=== PATIENT | male | born 1970 | race Caucasian/White ===

== ENCOUNTER 2025-05-27 09:28 | Emergency (ER) | payer BC, SELFPAY ==
[2025-05-27] VITALS (18 sets, daily range): BP systolic 122–146; BP diastolic 88–101; PULSE 77–101; TEMP 36.8; O2SAT 94–100; BMI 35.9
--- NOTE | 2025-05-27 09:58 | CT_ITS ---
The [address] [address] Patient Name: AMRITA NYE MRN: [id number] date: 1970 Sex: M Assigned Patient Location: ER Current Patient Location: Accession/Order Number: [id number] Exam Date: 05/27/2025 10:42 Report Date: 05/27/2025 11:20 At the request of: ARMAAN LINCOLN DO Procedure: CT angio neck CTA OF THE HEAD AND NECK WITH CONTRAST CLINICAL DATA: Transient blurred vision and disorientation. COMPARISON: None Spiral images were obtained through the head and neck following 100 MLO of Omnipaque 350. Sagittal and coronal MIP as well as 3-D volume rendered reconstructions of carotid arteries and [place] were reviewed. Stenosis is evaluated using NASCET criteria. This CT exam was performed using one or more following dose reduction techniques: Automated exposure control, adjustment of the mA and/or kV according to patient size, or use of iterative reconstruction technique. The aortic arch and proximal great vessels are unremarkable. There are patent vertebral arteries, without dissection or stenosis. The right is slightly larger in caliber than the left. Evaluation of the carotid arteries is slightly limited by respiratory motion however no significant plaque or luminal narrowing is identified. The cervical spine is unremarkable. There are a few small shotty cervical lymph nodes. The upper imaged lungs show an azygos lobe. There are no other contributory findings. The distal vertebral, basilar and posterior cerebral arteries show no significant findings. There is minimal carotid siphon plaque on the right, without associated luminal narrowing. The anterior and middle cerebral arteries are patent. No focal stenosis or suspected thrombosis is identified. No aneurysms are seen. CT/CT angio neck IMPRESSION: NO SIGNIFICANT VASCULAR FINDINGS. Impression dictated by: Radha Spaulding M.D. 05/27/2025 11:20 AM Dictation Location: [place] [address] Electronically authenticated by: [id number] Y Date: 05/27/2025 11:20
--- NOTE | 2025-05-27 09:58 | ECG_ITS ---
The [facility] Test Date: 2025-05-27 Pat Name: AMRITA NYE Department: Room: - Gender: Male Certified Physician Assistant: : 1970 Requested By: [id number] Order Number: [id number] Reading MD: GLORIA CHAVEZ Measurements Intervals [place] Rate: 91 P: 40 GA: 152 QRS: 60 QRSD: 92 T: 35 QT: 390 QTc: 439 Interpretive Statements 1100 Sinus rhythm 9110 normal ECG No previous ECG available for comparison Electronically Signed On 05-27-2025 11:19:08 EDT by GLORIA CHAVEZ
--- NOTE | 2025-05-27 09:58 | CT_ITS ---
The [address] [address] Patient Name: AMRITA NYE MRN: [id number] date: 1970 Sex: M Assigned Patient Location: ER Current Patient Location: Accession/Order Number: [id number] Exam Date: 05/27/2025 10:42 Report Date: 05/27/2025 11:20 At the request of: ARMAAN LINCOLN DO Procedure: CT angio neck CTA OF THE HEAD AND NECK WITH CONTRAST CLINICAL DATA: Transient blurred vision and disorientation. COMPARISON: None Spiral images were obtained through the head and neck following 100 MLO of Omnipaque 350. Sagittal and coronal MIP as well as 3-D volume rendered reconstructions of carotid arteries and [place] were reviewed. Stenosis is evaluated using NASCET criteria. This CT exam was performed using one or more following dose reduction techniques: Automated exposure control, adjustment of the mA and/or kV according to patient size, or use of iterative reconstruction technique. The aortic arch and proximal great vessels are unremarkable. There are patent vertebral arteries, without dissection or stenosis. The right is slightly larger in caliber than the left. Evaluation of the carotid arteries is slightly limited by respiratory motion however no significant plaque or luminal narrowing is identified. The cervical spine is unremarkable. There are a few small shotty cervical lymph nodes. The upper imaged lungs show an azygos lobe. There are no other contributory findings. The distal vertebral, basilar and posterior cerebral arteries show no significant findings. There is minimal carotid siphon plaque on the right, without associated luminal narrowing. The anterior and middle cerebral arteries are patent. No focal stenosis or suspected thrombosis is identified. No aneurysms are seen. CT/CT angio head IMPRESSION: NO SIGNIFICANT VASCULAR FINDINGS. Impression dictated by: Radha Spaulding M.D. 05/27/2025 11:20 AM Dictation Location: [place] [address] Electronically authenticated by: [id number] Y Date: 05/27/2025 11:20
--- NOTE | 2025-05-27 09:58 | CT_ITS ---
The [address] [address] Patient Name: AMRITA NYE MRN: [id number] date: 1970 Sex: M Assigned Patient Location: ER Current Patient Location: Accession/Order Number: [id number] Exam Date: 05/27/2025 10:42 Report Date: 05/27/2025 11:05 At the request of: ARMAAN LINCOLN DO Procedure: CT head/brain wo con CT BRAIN WITHOUT CONTRAST: CLINICAL HISTORY: Disorientation while driving. Transient blurred vision. COMPARISON: None TECHNIQUE: Contiguous axial unenhanced images were obtained through the brain. This CT exam was performed using one or more following dose reduction techniques: Automated exposure control, adjustment of the mA and/or kV according to patient size, or use of iterative reconstruction technique. FINDINGS: There is minor atrophy. The ventricles are normal in size and position. There are no significant areas of abnormal attenuation. There is no hemorrhage, mass effect or extra-axial collections. The imaged paranasal sinuses and mastoid air cells are clear. There is minor carotid siphon plaque. CT/CT head/brain wo con IMPRESSION: NO DEFINITE ACUTE INTRACRANIAL FINDINGS. FOLLOW-UP IS RECOMMENDED, SYMPTOMS WARRANT. Impression dictated by: Radha Spaulding M.D. 05/27/2025 11:05 AM Dictation Location: [place] [address] Electronically authenticated by: [id number] Y Date: 05/27/2025 11:05
--- NOTE | 2025-05-27 10:15 | ED_ITS ---
HPI HPI - General Adult General Chief complaint: Altered Mental Status Stated complaint: BLURRED VISION HEADACHE DIZZINESS Time Seen by Provider: 05/27/25 09:43 Source: patient Mode of arrival: walk-in Limitations: no limitations History of Present Illness HPI narrative: Patient is a 54-year-old male presenting to the emergency department with his for concerns of disorientation . 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 He states that he cannot keep his eyes open and feels extremely tired. He also state he had some blurry vision in the left eye, which is now completely resolved. He states he thinks he may have taken too much Seroquel, and may have confused his medication with citalopram. Other than feeling exhausted and unable to keep his eyes open, he has no other complaints. He denies chest pain or shortness of breath. No headache or neck pain. No fevers or chills. No abdominal pain, nausea, or vomiting. No weakness in the extremities. No paresthesias in the extremities. No loss of taste, smell, or hearing. Denies history of stroke or prior LA. Medical history only significant for hypertension and unspecified psychiatric illness. He denies recreational drug ingestions or alcohol use. Related Data Allergies Allergy/AdvReac Type Severity Reaction Status Date / Time No Known Drug Allergies Allergy Verified 05/27/25 09:35 Review of Systems ROS Status of ROS 10 or more systems reviewed and unremark able except as noted in history and below PFSH PFSH Social History Little interest or pleasure in doing things: not at all Feeling down, depressed, or hopeless: not at all Exam Narrative Exam Narrative: CONSTITUTIONAL: Patient is awake and alert, answering questions and following commands appropriately, his eyes start to close but will spontaneously wake himself up to continue the conversation SKIN: Was warm and dry. EYES: PERRLA, no scleral icterus or conjunctival pallor. Visual rodriguez intact. EARS, NOSE, THROAT: Neck was supple. There was no jugular venous distention. RESPIRATORY: Clear to auscultation bilaterally, no wheezes, crackles, or stridor, no use of accessory muscles CARDIOVASCULAR: Normal rate and regular rhythm. There is no S3, S4, murmur, rub. Radial pulses are 2+ and symmetrical. GASTROINTESTINAL: Abdomen was soft, non-tender, and non-distended. There is no guarding or rebound tenderness MUSCULOSKELETAL: There was no lower extremity edema, erythema, or tenderness. No clonus or rigidity. NEUROLOGIC: Patient is alert and oriented to person place and time with normal speech. Memory is normal and thought process is intact. Sensation: sensation to light touch is intact bilaterally in upper and lower extremities. Motor: Good muscle tone. Strength is 5/5 bilaterally in the upper and lower extremities. Cerebellar: Finger to nose intact. Cranial Nerves: Pupils are round, reactive to light and accommodation. Extraocular movements are intact without ptosis. No nystagmus. Facial sensation intact bilaterally to light touch in the V1, V2, V3 distribution. Facial muscle strength is normal and equal bilaterally. Hearing is normal bilaterally. Palate and uvula elevate symmetrically. Shoulder shrug strong and equal bilaterally. Tongue protrudes midline and moves symmetrically. Constitutional Vital Signs, click to edit/add: Last Vital Signs Temp 98.2 F 05/27/25 09:35 Pulse 91 H 05/27/25 12:00 Resp 27 H 05/27/25 12:00 BP 122/101 H 05/27/25 11:31 Pulse Ox 100 05/27/25 11:31 O2 Del Method Room Air 05/27/25 09:35 Course Vital Signs Vital signs: Vital Signs Temperature 98.2 F 05/27/25 09:35 Pulse Rate 101 H 05/27/25 09:35 Respiratory Rate 16 05/27/25 09:35 Blood Pressure 142/99 H 05/27/25 09:35 Pulse Oximetry 98 05/27/25 09:35 Oxygen Delivery Method Room Air 05/27/25 09:35 Temperature 98.2 F 05/27/25 09:35 Pulse Rate 91 H 05/27/25 12:00 Respiratory Rate 27 H 05/27/25 12:00 Blood Pressure 122/101 H 05/27/25 11:31 Pulse Oximetry 100 05/27/25 11:31 Oxygen Delivery Method Room Air 05/27/25 09:35 Medical Decision Making MDM Narrative Medical decision making narrative: Patient is a 54-year-old male presenting to the emergency department with his for concerns of disorientation, blurred vision that is has since resolved, and excessive tiredness. Patient thinks he may have accidentally taken a full dose of Seroquel 100 mg today. He usually only takes 25 mg as needed at night. His vital signs on arrival are only significant for borderline tachycardia, otherwise within normal limits. He is afebrile and hemodynamically stable. He seems to be exhausted, but is currently awake, alert, oriented x 3. He has no focal neurologic deficits and has an otherwise normal exam. Differential diagnosis includes medication side effect, encephalopathy from underlying electrolyte/metabolic derangement, uremia, other intracranial pathologies. He has no fevers, headache, neck stiffness, or other signs/symptoms of encephalitis/meningitis. IV was established and a broad workup was obtained. CT/CTA of the head/neck were ordered. Laboratory studies were unremarkable. No significant electrolyte or metabolic derangement. No evidence of acute kidney injury. No anemia, leukocytosis, or thrombocytopenia. No transaminitis or hyperbilirubinemia. Negative salicylate, acetaminophen, and ethanol levels. Troponin nonelevated. 12 Lead EKG: Normal sinus rhythm at a rate of 91. Normal axis. No ST segment elevations. QRS, IL, and QTc interval within normal limits. Final impression: normal sinus rhythm without evidence of acute myocardial ischemia CT head independently reviewed/interpreted by myself demonstrated no acute intracranial pathology or hemorrhage. CT angiogram of the head/neck demonstrated no large vessel occlusion, aneurysm, or stenosis. On reevaluation, the patient states he feels better after taking a nap. He is quite certain that he accidentally took too much Seroquel today. He is requesting to be discharged home. I do believe this is reasonable now that he is back to his baseline and had an unremarkable workup. He is currently asymptomatic with no complaints. I do believe the patient is stable for discharge. Patient's presentation is most likely consistent with medication side effect/sedation from Seroquel. They were instructed to follow up with their PCP for further care. Return precautions were given including any new or worsening symptoms. Patient understands and agrees to the plan. FINAL IMPRESSION: #Acute altered mental status, likely secondary to medication side effect from Seroquel, resolved DISPOSITION: Discharged home CONDITION: Good Medical Records Medical records reviewed: Yes I reviewed the patient's medical records Lab Data Lab results reviewed: Yes I reviewed the patient's lab results Labs: Lab Results 05/27/25 Range/Units 10:14 WBC 9.4 (4.0-11.0) 10^3/uL RBC 5.08 (4.70-6.10) 10^6/uL Hgb 15.1 (14.0-18.0) g/dL Hct 41.8 L (42.0-54.0) % MCV 82.3 (80.0-94.0) fL MCH 29.7 (25.9-34.0) pg MCHC 36.1 H (29.9-35.2) g/dL RDW 11.8 (11.0-15.0) % Plt Count 293 (150-450) 10^3/uL MPV 9.2 L (9.5-13.5) fL Neut % (Auto) 74.2 (43.0-75.0) % Lymph % (Auto) 14.6 L (20.5-60.0) % [place] % (Auto) 8.1 (1.7-12.0) % Eos % (Auto) 1.9 (0.9-7.0) % Baso % (Auto) 0.9 (0.2-2.0) % Neut # (Auto) 7.0 H (1.4-6.5) 10^3/uL Lymph # (Auto) 1.4 (1.2-3.8) 10^3/uL [place] # (Auto) 0.8 (0.3-0.8) 10^3/uL Eos # (Auto) 0.2 (0.0-0.7) 10^3/uL Baso # (Auto) 0.1 (0.0-0.1) 10^3/uL Abs Immat Gran (auto) 0.03 (0.00-0.03) 10^3/uL Imm/Tot Granulo (auto) 0.3 (0.0-0.5) % Sodium 133 L (136-145) mmol/L Potassium 3.9 (3.5-5.1) mmol/L Chloride 99 (98-107) mmol/L Carbon Dioxide 22.9 (21.0-32.0) mmol/L Anion Gap 15.0 BUN 15.0 (7.0-18.0) mg/dL Creatinine 1.04 (0.70-1.30) mg/dL Est GFR ( Amer) >60 (>=60 mL/min/1.73m^2) Est GFR (Non-Af Amer) >60 (>=60 mL/min/1.73m^2) BUN/Creatinine Ratio 14.4 Glucose 115 H (74-106) mg/dL Lactate 0.7 (0.4-2.0) mmol/L Calcium 9.2 (8.5-10.1) mg/dL Magnesium 1.9 (1.8-2.4) mg/dL Total Bilirubin 1.0 (0.2-1.0) mg/dL AST 38 H (15-37) U/L ALT 62 (16-63) U/L Alkaline Phosphatase 90 (46-116) U/L Ammonia 20 (11-32) umol/L Troponin I High Sens 7.8 (4.0-76.1) pg/mL Total Protein 8.0 (6.4-8.2) g/dL Albumin 4.2 (3.4-5.0) g/dL Globulin 3.8 g/dL Albumin/Globulin Ratio 1.1 Salicylates <2.8 (<=19.9) mg/dL Acetaminophen <2.0 L (10.0-30.0) ug/mL Ethanol Quant <3 mg/dL Imaging Data CT scan - head: Attestation: I personally reviewed and interpreted this imaging study as follows: Radiologist's impression: ITS Impressions Head CT 05/27/25 09:58 IMPRESSION: NO DEFINITE ACUTE INTRACRANIAL FINDINGS. FOLLOW-UP IS RECOMMENDED, SYMPTOMS WARRANT. Impression dictated by: Radha Spaulding M.D. 05/27/2025 11:05 AM Dictation Location: [place] Electronically authenticated by: [id number] Y Date: 05/27/2025 11:05 Head CTA 05/27/25 09:58 IMPRESSION: NO SIGNIFICANT VASCULAR FINDINGS. Impression dictated by: Radha Spaulding M.D. 05/27/2025 11:20 AM Dictation Location: [place] Electronically authenticated by: [id number] Y Date: 05/27/2025 11:20 Neck CTA 05/27/25 09:58 IMPRESSION: NO SIGNIFICANT VASCULAR FINDINGS. Impression dictated by: Radha Spaulding M.D. 05/27/2025 11:20 AM Dictation Location: [place] Electronically authenticated by: [id number] Y Date: 05/27/2025 11:20 ECG Data Attestation: I personally reviewed and interpreted this ECG as follows: Discharge Plan Discharge Chief Complaint: Altered Mental Status Clinical Impression: Altered mental status Patient Disposition: Home, Self-Care Time of Disposition Decision: 11:45 Condition: Good Mode of Transportation: Private Vehicle Print Language: Argentine Instructions: Altered Mental Status (ED) Additional Instructions: Follow up with your family DR and return to an ER for any problems or concerns Discharge Date/Time: 05/27/25 12:09
[2025-05-27 10:27] LABS: Hematocrit 41.8 % (42.0-54.0); Hemoglobin 15.1 g/dL (14.0-18.0); Immature Granulocytes Abs Auto 0.03 10^3/uL (0.00-0.03); Immature Granulocytes Pct Auto 0.3 % (0.0-0.5); Lymphocytes Absolute Auto 1.4 10^3/uL (1.2-3.8); Mean Corpuscular HGB Conc 36.1 g/dL (29.9-35.2); Mean Corpuscular Hemoglobin 29.7 pg (25.9-34.0); Mean Corpuscular Volume 82.3 fL (80.0-94.0); Platelet Count 293 10^3/uL (150-450); Red Blood Count 5.08 10^6/uL (4.70-6.10); White Blood Count 9.4 10^3/uL (4.0-11.0)
[2025-05-27 10:46] LABS: Ammonia 20 umol/L (11-32)
[2025-05-27 10:53] LABS: Lactate/Lactic Acid 0.7 mmol/L (0.4-2.0)
[2025-05-27 10:55] LABS: Alanine Aminotransferase 62 U/L (16-63); Albumin Globulin Ratio 1.1; Albumin Level 4.2 g/dL (3.4-5.0); Alkaline Phosphatase 90 U/L (46-116); Anion Gap 15.0; Aspartate Amino Transferase 38 U/L (15-37); Blood Urea Nitrogen 15.0 mg/dL (7.0-18.0); Calcium 9.2 mg/dL (8.5-10.1); Carbon Dioxide 22.9 mmol/L (21.0-32.0); Chloride 99 mmol/L (98-107); Estimated GFR (African America >60 (>=60 mL/min/1.73m^2); Estimated GFR (Non-African Ame >60 (>=60 mL/min/1.73m^2); Globulin 3.8 g/dL; Glucose 115 mg/dL (74-106); Magnesium 1.9 mg/dL (1.8-2.4); Potassium 3.9 mmol/L (3.5-5.1); Salicylate <2.8 mg/dL (<=19.9); Sodium 133 mmol/L (136-145); Total Protein 8.0 g/dL (6.4-8.2)
[2025-05-27 10:57] LABS: Acetaminophen <2.0 ug/mL (10.0-30.0)
== END 2025-05-27 12:09 | disposition home or self-care (01) ==
LOC: ER 11:56
PROVIDERS: Emergency Provider Student in an Organized Health Care Education/Training Program
DX: R41.82 Altered mental status, unspecified (principal); H53.8 Other visual disturbances; I10 Essential (primary) hypertension; F99 Mental disorder, not otherwise specified; Z79.899 Other long term (current) drug therapy
CPT/HCPCS: 36415; 70450; 70496; 70498; 80053; 80179; 80320; 80329; 82140; 83605; 83735; 84484; 85025; 93005; 99285; Q9967